=== PATIENT | female | born 1930 | race Caucasian/White ===

== ENCOUNTER 2016-09-06 16:06 | Emergency (ER) | payer MEDICARE, BC ==
[~2016-09-06 16:06] MED LIST: ARICEPT5 PO; ASAB PO; BENEFIBER PO; CALTRAT600 PO; FLORASTOR250 MG PO; FOSAMAX70 MG PO; IBU600 PO; LEVOTHYROXIN125 MCG PO; MIRALAX POWDER1 PKT PO; MULTIPLE VIT PO; NAMENDA10 MG PO; NORCO1 TA1 PO; NORV25 PO; SEROQUEL25 PO; ULTRAM50 PO; VITAMIN D31000 UNIT PO; ZOL50 PO
[2016-09-06 16:45] LABS: BASOPHILS 0.3 %; BASOPHILS ABSOLUTE 0.02 10/3/uL (0.0-0.16); EOSINOPHILS 0.6 %; EOSINOPHILS ABSOLUTE 0.04 10/3/uL (0.0-0.53); ER CBC TAT 0 Hrs 03 Mins; HEMATOCRIT 35.3 % (36.0-48.0); HEMOGLOBIN 11.7 g/dL (12.0-16.0); IMMATURE GRANULOCYTES 0.7 %; IMMATURE GRANULOCYTES ABSOLUTE 0.05 10/3/uL (0.0-0.11); LYMPHOCYTES 12.1 %; LYMPHOCYTES ABSOLUTE 0.85 10/3/uL (0.67-4.30); MANUAL DIFF NO %; MEAN CORPUS HGB CONC 33.1 g/dL (32.0-36.0); MEAN CORPUSCULAR HEMOGLOB 31.5 pg (26.0-34.0); MEAN CORPUSCULAR VOLUME 95.1 fL (80-100); MEAN PLATELET VOLUME 8.5 fL (9.2-13.0); MONOCYTES 9.1 %; MONOCYTES ABSOLUTE 0.64 10/3/uL (0.21-1.20); NEUTROPHILS 77.2 %; NEUTROPHILS ABSOLUTE 5.42 10/3/uL (2.02-8.40); PLATELET COUNT 211 10/3/uL (150-400); RBC DISTRIBUTION WIDTH 13.1 % (12.0-16.0); RED CELL COUNT 3.71 10/6/uL (4.0-5.6)
[2016-09-06 16:48] LABS: ASCORBIC ACID (UR NOT ORDER) NEG (NEG); BILIRUBIN, URINE NEGATIVE (NEG); ER URINALYSIS TAT 0 Hrs 14 Mins; KETONE, URINE NEGATIVE (NEG); LEUKOCYTE ESTERASE(NOT OR TRACE (NEG); NITRITE (URINE) NEG (NEG); WBC (NOT ORDERED) (RFLEX) 2 (0-5)
[2016-09-06 17:02] LABS: A/G RATIO 0.9 (0.7-1.9); ALBUMIN 3.3 G/DL (3.5-5.0); BUN (BLOOD UREA NITROGEN) 20 MG/DL (6-23); CALCIUM, SERUM 9.2 MG/DL (8.5-10.4); CHLORIDE, SERUM 101 MMOL/L (96-112); CO2 (CARBON DIOXIDE) 31 MMOL/L (24-34); CREATININE 0.82 MG/DL (0.55-1.02); GFR AFRICAN AMERICAN 75 ML/MIN (>=60); GFR NON AFRICAN AMERICAN 65 ML/MIN (>=60); GLOBULIN 3.6 G/DL (2.5-4.1); GLUCOSE, SERUM 113 MG/DL (60-99); POTASSIUM, SERUM 3.9 MMOL/L (3.5-5.3); SGOT(AST) 18 U/L (5-40); SGPT(ALT) 19 U/L (5-65); SODIUM, SERUM 140 MMOL/L (135-148); TOTAL BILIRUBIN 1.1 MG/DL (0-1.2); TOTAL PROTEIN 6.9 G/DL (6.0-8.5)
[2016-09-06 17:03] LABS: ALKALINE PHOSPHATASE 92 U/L (45-117)
[2017-02-08] MEDS ORDERED: NAMENDA10 MG PO (16:33)
[2017-02-08] MEDS ORDERED: VITAMIN D2000 UNIT PO (16:33)
[2017-02-08] MEDS ORDERED: DIALYVITE PO (16:34)
[2017-02-08] MEDS ORDERED: FLORASTOR250 MG PO (16:35)
[2017-02-08] MEDS ORDERED: MIRALAX POWDER1 PKT PO (16:35)
[2017-02-08] MEDS ORDERED: ZOL50 PO (16:36)
[2017-02-08] MEDS ORDERED: BENEFIBER PO ×2 (16:37→16:38)
[2017-02-08] MEDS ORDERED: LEVOTHYROXIN125 MCG PO ×2 (16:38→16:39)
[2017-02-08] MEDS ORDERED: NORV25 PO (16:46)
[2017-02-08] MEDS ORDERED: ASAB PO (16:47)
[2017-02-08] MEDS ORDERED: SEROQUEL25 PO (16:49)
[2017-02-08] MEDS ORDERED: ARICEPT5 PO (16:50)
[2017-02-08] MEDS ORDERED: SEROQUEL50 MG PO (16:51)
[2017-02-08] MEDS ORDERED: ACET500CAP PO (16:52)
[2017-02-08] MEDS ORDERED: ADVIL PO (16:53)
[2017-02-12] MEDS ORDERED: COREG3 PO (18:31)
[2017-02-12] MEDS ORDERED: SENTAB PO (18:34)
[2017-02-12] MEDS ORDERED: SEROQUEL25 PO (18:36)
[2017-02-12] MEDS ORDERED: NAMENDA10 MG PO (18:40)
== END 2016-09-06 20:46 | disposition home or self-care (01) ==
LOC: ER 16:06
PROVIDERS: Emergency Medicine
DX: R41.0 Disorientation, unspecified (principal); S42.292D Other displaced fracture of upper end of left humerus, subsequent encounter for fracture with routine healing; I10 Essential (primary) hypertension; G30.9 Alzheimer's disease, unspecified; F02.80 Dementia in other diseases classified elsewhere, unspecified severity, without behavioral disturbance, psychotic disturbance, mood disturbance, and anxiety; Z88.0 Allergy status to penicillin; Z88.5 Allergy status to narcotic agent; Z88.6 Allergy status to analgesic agent; Z79.82 Long term (current) use of aspirin; Z79.899 Other long term (current) drug therapy; W19.XXXD Unspecified fall, subsequent encounter
CPT/HCPCS: 70450; 71010; 72170; 80053; 81001; 85025; 93005; 99285